=== PATIENT | male | born 1985 | race African-American/Black ===

== ENCOUNTER 2020-06-24 09:26 | Emergency (ER) | payer MEDICAID, OTHER ==
[~2020-06-24] VITALS: Ht 167.6 cm; Wt 80.0 kg
[2020-06-24] MEDS ORDERED: IBUP-2028 PO (10:35)
[2020-06-24 10:57] VITALS: BP 127/71
== END 2020-06-24 10:58 | disposition home or self-care (01) ==
LOC: ER 09:26
DX: M25.532 Pain in left wrist (principal); Z91.81 History of falling
CPT/HCPCS: 73100; 99283

== ENCOUNTER 2021-10-14 11:38 | Emergency (ER) | payer MEDICAID ==
[~2021-10-14] VITALS: Ht 170.2 cm; Wt 73.0 kg
[~2021-10-14 11:38] MED LIST: IBUP-2028 PO
[2021-10-14 12:06] VITALS: BP 111/73
[2021-10-14] MEDS ORDERED: ACETAMINOPHEN 325MG TABLET PO ONE (12:30)
[2021-10-14] MEDS ORDERED: TOPUD PO (13:50)
== END 2021-10-14 14:34 | disposition home or self-care (01) ==
LOC: ER 11:38
DX: M25.511 Pain in right shoulder (principal); R20.0 Anesthesia of skin; K62.5 Hemorrhage of anus and rectum
CPT/HCPCS: 73030; 99283